=== PATIENT | female | born 1970 | race Caucasian/White ===

== ENCOUNTER 2017-12-07 05:49 | Day surgery (SDC) | payer OTHER ==
--- NOTE | 2017-12-06 12:36 | GHP ---
[f rep st] PREOP HISTORY AND PHYSICAL DATE OF ADMISSION: 12/07/2017 HISTORY OF PRESENT ILLNESS: The patient is a healthy, active, 47-year-old female who presented to [facility] in regard to pain on the left great toe. 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 She has worn prescription orthotics, st iffer soled shoes, decreased activity; all of which have helped, but at this point the pain has becom e chronic and is affecting her exercise activity on a regular basis; and she wants the toe corrected on a permanent basis. She had a similar procedure done in 2013 on her right great toe with good succ ess. The patient is a very healthy, active, 47-year-old female. Her goals are to hike, run twice we ekly, lift weights and maintain a very healthy, active lifestyle. PAST MEDICAL HISTORY: Significant for some minor arthritis and joint stiffness. Outside of that, apollo renteria is in excellent health. MEDICATIONS: She takes no prescription medications. ALLERGIES: She is allergic to cats. Has no true drug allergies. FAMILY HISTORY: Arthritis on her maternal side. No other family history of health problems. SOCIAL HISTORY: She has never used tobacco products. She denies alcohol use. In our discussion at her preop evaluation, she is alert and oriented. She has been a runner for year s. She has had progressive degenerative osteoarthritis in her great toes for years, ever since she w as in high school. REVIEW OF SYSTEMS: She denied any chronic or recent headaches, vision changes, hearing difficulties. She is alert and oriented. She denied any cardiac arrhythmias, chest pain, shortness of breath, GI distress, neurologic, dermatologic, or other musculoskeletal problems. She maintains a very healthy , active lifestyle and that is her goal in the future. PHYSICAL EXAMINATION: EXTREMITIES: Pulses are 2/4 on the dorsal pedal artery as well as the posteri or tibial artery. Her capillary fill to digits is less than 5 seconds to all 10 toes. She has minim al varicosities to either extremity and no edema at either extremity. NEUROLOGIC: Sharp, dull, ligh t touch and proprioception all intact and symmetric to the digital level. SKIN: Normal temperature, texture and turgor with normal hair distribution bilaterally. She has a mild pinch callus medially on the left great toe. MUSCULOSKELETAL: Normal manual muscle testing to the extrinsic leg muscles i ncluding the anterior lateral and posterior leg muscles, as well as the intrinsic arch muscles. Ther e is no evidence of weakness to either extremity. She has normal pain-free range of motion to the an kle, subtalar and midtarsal joints on both feet. She has a moderate arch foot type on both feet with significant dorsal osteophytic lipping on the left great toe joint. A very large bump on the dorsal medial aspect of the left great toe. IMAGING: X-rays were taken and show significant joint space narrowing with an elevatus of the 1st me tatarsal, dorsal jamming of the joint restricting dorsiflexion to less than 15 degrees from neutral. She has approximately 20 degrees of plantarflexion from neutral. On DP radiograph, there are signif icant bony osteophytes on the lateral aspect of the great toe joint, and there is lateral deviation a t the interphalangeal joint on the left great toe. She has otherwise normal bone density. She shows evidence of possible old chip fracture along the cuboid bone, but has no pain over that area. Other arguelles, the midtarsal joint looks very healthy. Very little degenerative changes otherwise on her feet . ASSESSMENT AND PLAN: Clinically, she has a hallux limitus/rigidus deformity on her left great toe. Preoperatively, we discussed mechanics of her great toe, the functioning of the great toe and what he r goals are as far as physical activity. I recommended a step-down decompression osteotomy of the le ft great toe with an angular correction on the left great toe. All questions were answered preoperat ively. Consent form was signed. She was given oral and written postop instructions along with presc ription for postoperative pain medications. Her prognosis is very good for rapid recovery at this po int, and I do not anticipate any problems in the future. She does have my cell phone number for 24-h our call should she have any problems or questions after surgery. Planned surgery is for December 07, 2017. /[id number]/MODL
[2017-12-07] MEDS ORDERED: LR 1,000 ML IV ONE (06:13)
[2017-12-07] MEDS ORDERED: ceFAZolin 1 GM/5 ML SYR ONE (07:01)
[2017-12-07] MEDS ORDERED: LIDO/EPI 2%** Not for Epidural 20 ML MDV ONE (07:01)
[2017-12-07] MEDS ORDERED: BUPIVACAINE 0.25% 30 ML SDV ONE ×2 (07:01→07:45)
--- NOTE | 2017-12-07 07:03 | PDANEPAE ---
ANE History of Present Illness L bunionectomy ANE Past Medical History - Cardiovascular History Hx Hypertension: No Hx Arrhythmias: No Hx Chest Pain: No Hx Coronary Artery / Peripheral Vascular Disease: No Hx CHF / Valvular Disease: No Hx Palpitations: No Cardiovascular History Comment: GIFTY SUMMER 2013, STRESS TEST, NORMAL TESTING - Pulmonary History Hx COPD: No Hx Asthma/Reactive Airway Disease: No Hx Recent Upper Respiratory Infection: No Hx Oxygen in Use at Home: No Hx Sleep Apnea: No Sleep Apnea Screening Result - Last Documented: Negative Pulmonary History Comment: DENIES SOB W STAIRS - Neurologic History Hx Cerebrovascular Accident: No Hx Seizures: No Hx Dementia: No - Endocrine History Hx Diabetes: No - Renal History Hx Renal Disorders: No - Liver History Hx Hepatic Disorders: No - Neurological & Psychiatric Hx Hx Neurological and Psychiatric Disorders: No - Cancer History Hx Cancer: No - Congenital Disorder History Hx Congenital Disorders: No - GI History Hx Gastrointestinal Disorders: No - Other Health History Other Health History: R BUNION - Chronic Pain History Chronic Pain: Yes (foot pain) - Surgical History Prior Surgeries: D AND C ANE Review of Systems Review of systems is: negative Review of Systems: - Exercise capacity METS (RN): 5 METS ANE Patient History - Allergies Allergies/Adverse Reactions: CATS Allergy (Mild, Uncoded 12/07/17 06:15) RUNNY NOSE seasonal Allergy (Uncoded 12/07/17 06:15) - Home Medications Home medications: home medication list seen and reviewed Home Medications: NK [No Known Home Meds] 06/19/14 [Last Taken Unknown] - NPO status NPO Status: no food or drink >8 hours NPO Since - Liquids (Date): 12/06/17 NPO Since - Liquids (Time): 20:00 NPO Since - Solids (Date): 12/06/17 NPO Since - Solids (Time): 18:30 - Anes Hx Anes Hx: no prior problems - Smoking Hx Smoking Status: Never smoked - Family Anes Hx Family Anes Hx: none Family Hx Anesthesia Complications: NONE ANE Labs/Vital Signs - Vital Signs Blood Pressure: 127/83 Heart Rate: 73 Respiratory Rate: 15 O2 Sat (%): 97 Height: 160.02 cm Weight: 56.699 kg ANE Physical Exam - Airway Neck exam: FROM Mallampati Score: Class 1 Mouth exam: normal dental/mouth exam - Pulmonary Pulmonary: no respiratory distress - Cardiovascular Cardiovascular: regular rate and rhythym - ASA Status ASA Status: I ANE Anesthesia Plan Total IV Anesthesia: Yes
[2017-12-07] MEDS ORDERED: MIDAZOLAM 2 MG/2 ML VIAL IVP ONE (07:04)
[2017-12-07] MEDS ORDERED: LIDOCAINE 2% 100 MG/5 ML SYR ONE (07:17)
[2017-12-07] MEDS ORDERED: PROPOFOL/EMULSION 500 MG/50 ML BOTTLE IV ONE (07:17)
[2017-12-07] MEDS ORDERED: ceFAZolin 2 GM/DEXTROSE 100 ML IV ONE (07:33)
[2017-12-07] MEDS ORDERED: ceFAZolin 2 GM/SWFI 2 GM/20 ML SYR IVP ONE (08:00)
[2017-12-07] MEDS ORDERED: PROPOFOL 200 MG/20 ML VIAL ONE ×2 (08:31→09:05)
[2017-12-07] MEDS ORDERED: LIDOCAINE 1% 300 MG/30 ML SDV ONE (08:50)
[2017-12-07] MEDS ORDERED: OXYCODONE/APAP 5/325 TAB PO PRN (09:18)
[2017-12-07] MEDS ORDERED: fentaNYL 100 MCG/2 ML INJ IVP PRN (09:18)
[2017-12-07] MEDS ORDERED: ACETAMINOPHEN 500 MG TAB PO PRN (09:18)
[2017-12-07] MEDS ORDERED: PROMETHAZINE HCL 25 MG/ML INJ IVP PRN (09:18)
[2017-12-07] MEDS ORDERED: HYDROmorphONE/DILAUDID 1 MG/ML INJ IVP PRN (09:18)
[2017-12-07] MEDS ORDERED: ONDANSETRON 4 MG/2 ML VIAL IVP PRN (09:18)
[2017-12-07] MEDS ORDERED: DEXAMETHASONE 4 MG/ML VIAL IVP PRN (09:18)
[2017-12-07] MEDS ORDERED: HYDROCODONE/APAP 5/325 TAB PO PRN (09:18)
[2017-12-07] MEDS ORDERED: NALOXONE HCL 0.4 MG/ML INJ IVP PRN (09:18)
--- NOTE | 2017-12-07 09:21 | POSTANESTH ---
Post Anesthetic Evaluation Cardiovascular Status: Normal, Stable, Similar to Pre-Op Cond Respiratory Status: Normal, Stable, Similar to Pre-op Cond. Level of Consciousness/Mental Status: Can Participate in Eval, Moderately Sleepy Pain Control: Adequate, Prn Tx Ordered Nausea/Vomiting Control: Adequate, Prn Tx Ordered Complications Possibly Related to Anesthesia: None Noted
[2017-12-07 09:38] VITALS: TEMP 97.3
[2017-12-07 10:54] VITALS: BP 115/80; PULSE 63; RESP 16; O2SAT 96
--- NOTE | 2017-12-10 11:40 | GOP ---
[f rep st] OPERATIVE REPORT DATE OF OPERATION: 12/07/2017 SURGEON: Abhi Kay DPM ANESTHESIA: IV MAC plus a local infiltration of approximately 5 mL of 0.5% Marcaine plain and 5 mL o f 1% lidocaine with epinephrine. PREOPERATIVE DIAGNOSIS: Hallux valgus/hallux limitus deformity, left lower extremity. POSTOPERATIVE DIAGNOSIS: Hallux valgus/hallux limitus deformity, left lower extremity. PROCEDURE PERFORMED: 1. Modified Carpenter bunionectomy with stepdown osteotomy and screw fixation. 2. Osiel osteotomy with screw fixation. FINDINGS: SPECIMENS: There were no specimens sent to Pathology. ESTIMATED BLOOD LOSS: Was less than 10 mL. DESCRIPTION OF PROCEDURE: The patient was taken to the operating room, placed in the supine position . After local and MAC anesthesia, the left lower extremity was elevated, prepped and draped in the u sual sterile OR fashion achieving a sterile field about the entire distal aspect of the extremity. A ttention was directed to the medial aspect of the left great toe joint. After the foot was elevated, exsanguinated, tourniquet was inflated to 225 mmHg. Total tourniquet time was just over 1 hour. Attention was directed to the medial aspect of the left great toe joint where approximately 3-1/2 inc h linear incision was made. Dissection was carried down to the level of the joint capsule, taking ca re to preserve the neurovascular status to the area. All superficial vessels were clamped and bovied as necessary. The 1st intermetatarsal space was entered via sharp and blunt dissection. The adduct or tendon was released sharply from its attachments into the base of the proximal phalanx. At this point, a dorsal capsular incision was made from the distal third of the metatarsal into the p roximal phalanx, reflected medially and laterally along with the periosteum. There was loose cartila ge and multiple bony fragments noted on the dorsal medial aspect of the joint. This was removed util izing sharp and blunt dissection as well as the bone saw. The entire dorsal osteophytes were removed utilizing a bone saw both on the metatarsal head as well as the base of the proximal phalanx. At th is point, a 035 K-wire was placed through the metaphysis of the metatarsal orienting the K-wire such that it was more dorsal medial and plantar lateral. Utilizing this K-wire as an apex for the V or ch evron osteotomy, this osteotomy was carried out taking care to preserve the cartilage on these both p lantar sesamoidal apparatus as well as the metatarsal head. This osteotomy was carried out with a sl ightly elongated dorsal wing. This was for later screw placement. The metatarsal was shifted latera lly and plantarly at the same time. The K-wire was removed from the operative site and used as tempo rary fixation. Utilizing AO technique, a single 2.4 mm Osteomed screw was placed from dorsal lateral to proximal medial through the dorsal wing of the osteotomy with excellent compression noted. There was good bone density noted intraoperatively. The K-wire was removed from the operative site. Redundant bone was removed medially and rasped gilmar h utilizing a rotary bur. There was good bony apposition of the osteotomy noted intraoperatively. T he area was flushed copiously with dilute antibiotic solution. There was significant osteophytic lip ping on the base of the proximal phalanx and this was removed utilizing a rongeur and rasped smooth u tilizing a rotary bur. At this point, the great toe was taken through range of motion. It was still pushing on the 2nd toe slightly, so it was deemed necessary to do a secondary osteotomy, which was c arried out at the proximal phalanx. The bone saw was utilized for a distal oblique wedge osteotomy with the apex proximal lateral on the proximal phalanx. This wedge of bone was removed from the operative site and utilizing a fraction re duction clamp to close the osteotomy, this swung the great toe away from the 2nd. Intraoperatively, this toe was then deemed to be anatomically aligned. It was no longer touching the 2nd toe. Again, utilizing AO technique, 2 parallel 2.4 mm Osteomed screws were placed perpendicular to the osteotomy site from proximal medial to distal lateral. Excellent compression was noted intraoperatively. The fracture reduction clamp was removed from the operative site. The great toe was taken through ra nge of motion and deemed to be anatomically aligned. The area was flushed copiously with dilute anti biotic solution. It should be noted that the dorsal 35% of the metatarsal head was completely devoid of cartilage. Utilizing the 0.35 K-wire, small drill holes were made into the areas that were lacki ng cartilage on the metatarsal head. This was to produce fibrocartilage. Again, the area was flushed copiously with dilute antibiotic solution. The great toe was taken throu gh a range of motion, deemed to be anatomically aligned and she had 40 degrees of dorsiflexion from n eutral intraoperatively versus the 5 degree she had prior to surgery. Again, the area was flushed copiously. Redundant capsule was capsulotomized medially and then the ca psule was reapproximated utilizing 3-0 Vicryl in a simple interrupted suture. The periosteum was sudhir pproximated utilizing 4-0 Vicryl in a simple interrupted suture. Subcu closure was carried out via 4 -0 Vicryl in a horizontal mattress suture and skin closure was carried out via 4-0 Prolene in a runni ng subcuticular stitch. The incision was reinforced with Mastisol and Steri-Strips. Sterile dressin g applied with mild compression. The tourniquet was released. All digits immediately returned to un iform pink color with normal capillary refill. The patient went into recovery in a satisfactory stat e with all vital signs stable. Her prognosis is excellent for rapid recovery. She will be followed up x3 days postop at the [facility]. I did attempt to go visit with her who was not present in the recovery room at that time. I did leave a message for him to call me when he got a chance postoperatively. It should be noted that later on in the evening, I did discuss the case with him and the case went very smoothly. Her range of motion was very good postoperatively and the toe realigned very nicely. At this point, her prognosis is very good for rapid recovery. Again, she will be followed up x3 days postop at [facility]. She was given my cell phone number for 24 hour call shou ld she have any problems or questions. COMPLICATIONS: There were no complications. DRAINS: There were no drains placed into the operative site. /[id number]/MODL
== END 2017-12-07 10:42 | disposition home or self-care (01) ==
LOC: FSGY 05:49
PROVIDERS: ATTEND Podiatrist
PROC: 0QBR0ZZ Excision of Left Toe Phalanx, Open Approach (ICD-10-PCS; principal; 2017-12-07 07:15)
PROC: 0QBP0ZZ Excision of Left Metatarsal, Open Approach (ICD-10-PCS; principal; 2017-12-07 07:15)
PROC: 0Q8P0ZZ Division of Left Metatarsal, Open Approach (ICD-10-PCS; principal; 2017-12-07 07:15)
DX: M21.612 Bunion of left foot (principal); M20.22 Hallux rigidus, left foot; M19.91 Primary osteoarthritis, unspecified site; Z82.49 Family history of ischemic heart disease and other diseases of the circulatory system
CPT/HCPCS: C1713; J2001; J2250; J2704